=== PATIENT | female | born 1990 | race Caucasian/White ===

== ENCOUNTER 2019-05-15 21:14 | Emergency (ER) | payer OTHER ==
[~2019-05-15] VITALS: Ht 167.6 cm; Wt 77.6 kg
--- NOTE | 2019-05-15 22:05 | PHYS DOC ---
Past History Past Medical History: Other Additional Past Medical Histor: Graves Past Surgical History: Other Additional Past Surgical Histo: Thyroid Alcohol Use: Heavy Drug Use: None Adult General Chief Complaint Chief Complaint: LOWEREXTREMITY INJURY HPI HPI Patient is a 28 year old female who presents with complaint of right ankle injury. The patient states that she was running and accidentally took a misstep off of a curb, causing her foot to roll inward. Started have severe pain along the lateral side of the right ankle. States that she has not been able to bear weight secondary to pain. Does admit to drinking alcohol this evening. Denies any other injuries. Notes significant pain with any attempt to walk and thus was brought in to the emergency department room by wheelchair. Has not taken any medications for symptoms at this time. States that this happened shortly prior to arrival. Review of Systems Review of Systems Constitutional: Denies fever or chills [] Musculoskeletal: Right ankle pain and swelling[] Integument: Denies rash or skin lesions [] Neurologic: Denies headache, focal weakness or sensory changes [] All other systems were reviewed and found to be within normal limits, except as documented in this note. Allergies Allergies Allergies Coded Allergies Type Severity Reaction Last Updated Verified niacin Allergy Unknown 05/15/19 Yes Physical Exam Physical Exam Constitutional: Well developed, well nourished, no acute distress, non-toxic appearance. [] Skin: Warm, dry, no erythema, no rash. [] Extremities: Significant swelling overlying right lateral malleolus, tenderness palpation over right lateral malleolus and lateral joint space of right ankle, range of motion not tested secondary to pain, normal sensation in all 5 digits of the right foot. [] Neurologic: Alert and oriented X 3, normal motor function, normal sensory function, no focal deficits noted. [] Current Patient Data Vital Signs Vital Signs Date Time Temp Pulse Resp B/P (MAP) Pulse Ox O2 Delivery O2 Flow Rate FiO2 05/15/19 21:34 98.0 66 16 96 Room Air Lab Results Not performed EKG EKG Not performed[] Radiology/Procedures Radiology/Procedures [address] [address] IMAGING REPORT Signed PATIENT: CHEN HAYES ACCOUNT: [id number] : 1990 LOCATION: ER AGE: 28 SEX: F EXAM STATUS: REG ER ORD. PHYSICIAN: DANAY MCLAUGHLIN MD REASON: Right ankle injury, pain and swelling PROCEDURE: ANKLE RIGHT 3V Three-view right ankle dated 05/15/2019. No comparison available. Clinical data indication: Ankle pain and swelling. FINDINGS: 3 views right ankle show normal bony alignment. No displaced fracture. There is diffuse soft tissue swelling. Small corticated bone fragment near the tip of the distal fibula. The talar dome is intact. No acute acute osseous or articular abnormality. IMPRESSION: 1. Soft tissue swelling with no evidence for underlying displaced fracture. 2. Small corticated bone fragment at the tip of the distal fibula, likely accessory ossification center or remote avulsion. Electronically signed by: Stephon Alvarez MD (05/15/2019 10:44 PM) [facility] DICTATED AND SIGNED BY: STEPHON ALVAREZ MD DATE: 05/15/19 2244 CC: DANAY MCLAUGHLIN MD; HUSSAIN ZUNIGA DO ~ [] Course & Med Decision Making Course & Med Decision Making Pertinent Labs and Imaging studies reviewed. (See chart for details) X-rays negative for fracture. Symptoms appear consistent with moderate lateral ankle sprain. Offered to apply Justo wrap and Aircast the patient did not want this done as she states her ankles to tender to touch. Crutches provided to patient in the emergency department. Patient discharged with an Justo bandage and Aircast to apply when tolerated. Advised follow-up with primary doctor in 7-10 days for reevaluation if symptoms are not improving and return to emergency department for any worsening symptoms. Patient was understanding and in agreement with treatment plan. Dragon Disclaimer Dragon Disclaimer This electronic medical record was generated, in whole or in part, using a voice recognition dictation system. Departure Departure: Impression: Primary Impression: Right ankle sprain Disposition: 01 HOME, SELF-CARE Condition: STABLE Referrals: HUSSAIN ZUNIGA DO (PCP) Patient Instructions: Ankle Sprain Additional Instructions: Follow-up with your primary doctor in 7-10 days if symptoms are not improving. Return to the emergency department for any worsening symptoms. Problem Qualifiers Primary Impression: Right ankle sprain Encounter type: initial encounter Involved ligament of ankle: anterior talofibular ligament Qualified Codes: S93.491A - Sprain of other ligament of right ankle, initial encounter DANAY MCLAUGHLIN MD May 15, 2019 22:04
--- NOTE | 2019-05-15 22:47 | RAD ---
Three-view right ankle dated 05/15/2019. No comparison available. Clinical data indication: Ankle pain and swelling. FINDINGS: 3 views right ankle show normal bony alignment. No displaced fracture. There is diffuse soft tissue swelling. Small corticated bone fragment near the tip of the distal fibula. The talar dome is intact. No acute acute osseous or articular abnormality. IMPRESSION: 1. Soft tissue swelling with no evidence for underlying displaced fracture. 2. Small corticated bone fragment at the tip of the distal fibula, likely accessory ossification center or remote avulsion. Electronically signed by: Stephon Alvarez MD (05/15/2019 10:44 PM) [facility]
[2019-05-15 23:25] VITALS: BP 98/57
== END 2019-05-15 23:15 | disposition home or self-care (01) ==
LOC: ER 21:14
DX: S93.491A Sprain of other ligament of right ankle, initial encounter (principal); F10.20 Alcohol dependence, uncomplicated; Z88.1 Allergy status to other antibiotic agents; X50.3XXA Overexertion from repetitive movements, initial encounter; Y93.02 Activity, running; Y92.89 Other specified places as the place of occurrence of the external cause; Y99.8 Other external cause status; Y90.9 Presence of alcohol in blood, level not specified
CPT/HCPCS: 73610; 99284; L4350

== ENCOUNTER 2019-10-07 08:30 | Emergency (ER) | payer OTHER ==
[~2019-10-07] VITALS: Ht 162.6 cm; Wt 82.3 kg
[2019-10-07 08:30] VITALS: BP 120/72
[2019-10-07 09:14] LABS: INFLUENZA A PATIENT POSITIVE (NEGATIVE); INFLUENZA B PATIENT NEGATIVE (NEGATIVE)
--- NOTE | 2019-10-07 09:20 | PHYS DOC ---
Past History Past Medical History: Other Additional Past Medical Histor: Graves Past Surgical History: Other Additional Past Surgical Histo: Thyroid Alcohol Use: Heavy Drug Use: None Adult General Chief Complaint Chief Complaint: FLU SYMPTOM HPI HPI 29-year-old female presents with 3 day history of sore throat, cough, congestion, and low-grade fever. She is also had some diffuse body aches. Her fevers been up to 100.8. She presents today because the sore throat seems to be worse. He had difficulty sleeping last night. She denies nausea, vomiting, or diarrhea. Review of Systems Review of Systems Constitutional: Fever [] Eyes: Denies change in visual acuity, redness, or eye pain [] HENT: sore throat [] Respiratory: Cough without shortness of breath [] Cardiovascular: No additional information not addressed in HPI [] GI: Denies abdominal pain, nausea, vomiting, bloody stools or diarrhea [] : Denies dysuria or hematuria [] Musculoskeletal: Denies back pain or joint pain [] Integument: Denies rash or skin lesions [] Neurologic: Denies headache, focal weakness or sensory changes [] Endocrine: Denies polyuria or polydipsia [] All other systems were reviewed and found to be within normal limits, except as documented in this note. Allergies Allergies Allergies Coded Allergies Type Severity Reaction Last Updated Verified niacin Allergy Unknown 05/15/19 Yes Physical Exam Physical Exam Constitutional: Well developed, well nourished, no acute distress, non-toxic appearance. [] HENT: Normocephalic, atraumatic, bilateral external ears normal, oropharynx erythematous without exudates, nose congested. [] Eyes: PERRLA, EOMI, conjunctiva normal, no discharge. [] Neck: Normal range of motion, no tenderness, supple, no stridor. [] Cardiovascular: Heart rate regular rhythm, no murmur [] Lungs & Thorax: Bilateral breath sounds clear to auscultation [] Abdomen: Bowel sounds normal, soft, no tenderness, no masses, no pulsatile masses. [] Skin: Warm, dry, no erythema, no rash. [] Back: No tenderness, no CVA tenderness. [] Extremities: No tenderness, no cyanosis, no clubbing, ROM intact, no edema. [] Neurologic: Alert and oriented X 3, normal motor function, normal sensory function, no focal deficits noted. [] Psychologic: Affect normal, judgement normal, mood normal. [] Current Patient Data Lab Results Laboratory Tests Test 10/07/19 08:36 Influenza Type A (Rapid) Positive (NEGATIVE) Influenza Type B (Rapid) Negative (NEGATIVE) EKG EKG [] Radiology/Procedures Radiology/Procedures [] Course & Med Decision Making Course & Med Decision Making Pertinent Labs and Imaging studies reviewed. (See chart for details) The patient's rapid strep is negative. Her influenza A is positive. She is within 72 hours, so I will treat her with Tamiflu. She is stable for discharge at this time. [] Dragon Disclaimer Dragon Disclaimer This electronic medical record was generated, in whole or in part, using a voice recognition dictation system. Departure Departure: Impression: Primary Impression: Influenza A Disposition: 01 HOME, SELF-CARE Condition: STABLE Referrals: HUSSAIN ZUNIGA DO (PCP) Patient Instructions: Influenza, Adult, [id number] Scripts Oseltamivir Phosphate (TAMIFLU) 75 Mg Capsule 1 CAP PO BID for influenza, #10 CAP Prov: RAFA MAST DO 10/07/19 RAFA MAST DO Oct 07, 2019 09:20
[2019-10-07] MEDS ORDERED: OSEL75CA PO (09:42)
== END 2019-10-07 09:48 | disposition home or self-care (01) ==
LOC: ER 08:30
DX: J10.1 Influenza due to other identified influenza virus with other respiratory manifestations (principal); Z88.8 Allergy status to other drugs, medicaments and biological substances
CPT/HCPCS: 87070; 87804; 87880; 99283

== ENCOUNTER → 2020-11-20 | Outpatient (CLI) | payer OTHER ==
[~2020-11-20] MED LIST: OSEL75CA PO
--- NOTE | 2020-11-20 15:41 | RAD ---
EXAM: Bilateral knees, standing view; left knee, 2 views. HISTORY: Pain. COMPARISON: None. FINDINGS: A frontal standing view both knees and 2 views of the left knee are obtained. There is no f racture, dislocation or subluxation. There are benign bone islands. There is no left knee effusion. IMPRESSION: No acute osseous finding. Electronically signed by: Ayanna Shields MD (11/20/2020 3:38 PM) [id number]
== END ==
LOC: RAD 14:28
PROVIDERS: ATTEND Orthopaedic Surgery
DX: M25.562 Pain in left knee (principal)
CPT/HCPCS: 73560; 73565